=== PATIENT | male | born 1965 | race Caucasian/White ===

== ENCOUNTER → 2021-10-10 | Day surgery (SDC) | payer BC ==
[~2021-10-10] MED LIST: ATORVASTATIN CA40 MG PO; ESOMEPRAZOLE MA40 M1 PO; HYDROCHLOROTHIA25 MG PO; INDOMETHACIN50 MG PO; VALSARTAN160 MG PO
== END | disposition home or self-care (01) ==
LOC: OR 06:34
DX: R19.7 Diarrhea, unspecified (principal); I10 Essential (primary) hypertension; K62.5 Hemorrhage of anus and rectum; E66.01 Morbid (severe) obesity due to excess calories; Z68.41 Body mass index [BMI] 40.0-44.9, adult; Z20.822 Contact with and (suspected) exposure to COVID-19; R73.03 Prediabetes; K64.0 First degree hemorrhoids
CPT/HCPCS: J2704; J7040; U0002